=== PATIENT | female | born 1935 | race Caucasian/White ===

== ENCOUNTER → 2016-08-14 | Outpatient (CLI) | payer MEDICARE, BC ==
--- NOTE | 2016-08-14 12:56 | XR ---
EXAMINATION TYPE: XR lumbosacral spine min 4V DATE OF EXAM: 08/14/2016 12:50 PM COMPARISON: 05/31/2015 HISTORY: Low back pain TECHNIQUE: 5 view lumbar spine FINDINGS: Facet hypertrophy and degenerative changes are present L4-5, L5-S1. No spondylolytic defect s are evident. Vascular calcification is within the aorta. There is some fusiform prominence of the d istal abdominal aorta with a maximum AP diameter estimated at 3.1 cm. This is anterior to the L3 leve l There is a grade 1 spondylolisthesis of L4 anteriorly on L5. There is vacuum disc phenomenon at L5-S1 and L4-4-5. Mild diffuse posterior disc space narrowing is present through the upper lumbar spine. IMPRESSION: 1. Degenerative disc changes L5-S1 and L4-5. 2. Grade 1 spondylolisthesis of L4 anteriorly on L5. 3. Fusiform prominence of the distal abdominal aorta measuring 3.1 cm AP dimension.
== END | disposition home or self-care (01) ==
LOC: RADXRMAIN 12:38
PROVIDERS: ATTEND Family Medicine
DX: M43.16 Spondylolisthesis, lumbar region (principal); M47.816 Spondylosis without myelopathy or radiculopathy, lumbar region; M47.817 Spondylosis without myelopathy or radiculopathy, lumbosacral region
CPT/HCPCS: 72110; 93880

== ENCOUNTER → 2016-08-23 | Outpatient (CLI) | payer MEDICARE, BC ==
[2016-08-23 13:07] LABS: Blood Urea Nitrogen 24 mg/dL (7-17); Non-African American GFR(MDRD) 54 (>60 ml/min/1.73 sqM)
--- NOTE | 2016-08-23 14:19 | CT ---
EXAMINATION TYPE: CT abdomen w con DATE OF EXAM: 08/23/2016 2:08 PM REFERENCE: Previous study dated 08/24/2010. HISTORY: I71.4 AAA HISTORY: AAA REFERENCE: NONE CT DLP: 914 mGy Automated exposure control for dose reduction was used. TECHNIQUE: Helical acquisition through the abdomen and pelvis was obtained following the oral ingesti on of without Oral Contrast and following intravenous administration of 80 ml mL of Visipaque 320. Th e data was reformatted in axial, coronal and sagittal projections. FINDINGS: There has been a previous left-sided mastectomy. There is a stable granuloma in the right middle lobe. Visualized portions of the lungs are otherwise clear. There is no pleural or pericardial fluid. There is a small amount of air within the main pulmonary artery. This is likely iatrogenic. Within the abdomen, the liver, spleen and gallbladder are normal. The patient's left-sided adrenal ma ss is increased in size from 9.5 mm to 11.8 mm. There is a 1.6 cm right adrenal mass, unchanged from previous. The pancreas is unremarkable. Both kidneys demonstrate function and appear morphologically normal. There is atheromatous irregularity of the aorta there is ectasia of the infrarenal abdominal aorta wh ich measures 2.9 cm. Visualized bowel loops are unremarkable. There is no evidence of free fluid or free air. There is facet arthropathy and hypertrophic spondylosis present within the spine there is degenerativ e grade 1 bordering on grade 2 spondylolisthesis of L4 on L5. IMPRESSION: 1. STATUS POST LEFT MASTECTOMY. 2. EVIDENCE OF OLD GRANULOMATOUS DISEASE. 3. SMALL AMOUNT OF AIR IN THE MAIN PULMONARY ARTERY, LIKELY IATROGENIC. 4. ENLARGING LEFT-SIDED ADRENAL MASS. 5. STABLE RIGHT-SIDED ADRENAL MASS. 6. DEGENERATIVE CHANGE WITHIN THE SPINE INCLUDING A DEGENERATIVE GRADE 1 BORDERING ON GRADE 2 SPONDYL OLISTHESIS OF L4-L5.
[2016-08-23 14:32] LABS: Basophils % (A) 0 %; CH 31.9; CHCM 33.2; Eosinophils % (A) 0 %; HCT 50.8 % (34.0-46.0); HDW 2.44; HGB 16.6 gm/dL (11.4-16.0); Luc # (Auto) 0.03; Luc % (Auto) 0; Lymphocytes # (A) 1.1 k/uL (1.0-4.8); Lymphocytes % (A) 11 %; MCH 31.5 pg (25.0-35.0); MCHC 32.6 g/dL (31.0-37.0); MCV 96.5 fL (80.0-100.0); Mean Platelet Volume 7.5; Monocytes # (A) 0.2 k/uL (0-1.0); Monocytes % (A) 2 %; Neutrophils # (A) 8.7 k/uL (1.3-7.7); Neutrophils % (A) 87 %; RBC 5.26 m/uL (3.80-5.40); RDW 12.9 % (11.5-15.5); WBC 9.9 k/uL (3.8-10.6); WBC (Perox) 9.77
[2016-08-23 15:23] LABS: Erythrocyte Sedimentation Rate 7 mm/hr (0-20)
== END | disposition home or self-care (01) ==
LOC: RADCTMAIN 12:09
PROVIDERS: ATTEND Family Medicine
DX: E27.9 Disorder of adrenal gland, unspecified (principal)
CPT/HCPCS: 85652; 82565; 84520; 85025; 86140; 74160; 36415; Q9967

== ENCOUNTER → 2016-10-24 | Outpatient (CLI) | payer MEDICARE, BC | LOC: LABWHC1 07:49 | PROVIDERS: ATTEND Surgery | DX: E27.8 Other specified disorders of adrenal gland (principal) | CPT/HCPCS: 36415; 82533 ==

== ENCOUNTER → 2017-07-29 | Outpatient (CLI) | payer MEDICARE, BC ==
--- NOTE | 2017-07-29 15:58 | CT ---
EXAMINATION TYPE: CT brain wo con DATE OF EXAM: 07/29/2017 COMPARISON: 05/31/2015 INDICATION: Dizziness and headaches. DLP: 995.5 mGycm, Automated exposure control for dose reduction was used. CONTRAST: None CT of the brain is performed utilizing 3 mm thick sections through the posterior fossa and 3 mm thick sections through the remaining calvarium. Study is performed within 24 hours of arrival to the hosp ital. No abnormal hyperdensity is present to suggest an acute intracranial hemorrhage. Arachnoid cyst is in the posterior left posterior fossa. No acute infarcts are evident. There is some periventricular white matter hypodensity, likely on the basis of chronic white matter ischemic changes. Ventricles and sulci are prominent for the patient age. Paranasal sinuses and mastoid air cells within the [id number] are clear. IMPRESSIONS: 1. Atrophy with periventricular white matter ischemic changes. 2. Arachnoid cyst posterior fossa. 3. Exam is stable from 2014
--- NOTE | 2017-07-29 16:03 | CT ---
EXAMINATION TYPE: CT abdomen pelvis wo con DATE OF EXAM: 07/29/2017 COMPARISON: 08/23/2016 INDICATION: No complaints at time of scan. DLP: 352.4 mGycm, Automated exposure control for dose reduction was used. CONTRAST: 0 mL of Omnipaque 300. Study performed with Oral Contrast TECHNIQUE: Axial images were obtained from above the diaphragm to the pubic rami in the axial plane a t 5 mm thick sections. Reconstructed images are reviewed on the computer in the coronal plane. FINDINGS: Limited CT sections are obtained the lung bases. Calcified granuloma is in the posterior lateral lef t lung base, present previously. There is calcification in the lateral right middle lobe, present pre viously. Left breast prosthesis is present. Coronary artery calcification is noted. Vascular calcifi cations within the aorta is present. CT ABDOMEN: Liver: Normal Spleen: Normal Pancreas: Normal Adrenal glands: Right adrenal gland appears stable with mild fullness. Left adrenal gland currently h as a transverse dimension of 1.2 cm which is slightly larger than 1.0 cm in August. Gallbladder: Normal Kidneys: No masses are evident. No hydronephrosis is present. No cysts are present. Studies withou t intravenous contrast limiting the evaluation. Aorta: Vascular calcification is within the aorta. Inferior vena cava: Normal. CT PELVIS: Loops of bowel within the abdomen and pelvis are normal. There are loops of bowel which are incom pletely distended or lack oral contrast limiting their evaluation. Appendix: Not identified Urinary bladder: Normal. Genitourinary structures: Uterus and ovaries are not identified. Osseous structures: No suspicious lytic or sclerotic lesions. Facet degenerative changes are within t he lumbar spine. IMPRESSIONS: 1. Mild enlargement of the left adrenal gland. 2. Examination is otherwise stable from comparison.
== END | disposition home or self-care (01) ==
LOC: RADCTMAIN 13:20
PROVIDERS: ATTEND Family Medicine
DX: G93.0 Cerebral cysts (principal); G31.9 Degenerative disease of nervous system, unspecified; R90.89 Other abnormal findings on diagnostic imaging of central nervous system; E27.9 Disorder of adrenal gland, unspecified
CPT/HCPCS: 70450; 74176

== ENCOUNTER 2017-12-28 09:35 | Emergency (ER) | payer MEDICARE, BC ==
--- NOTE | 2017-12-28 10:20 | ED ---
General Adult HPI - General Chief complaint: Extremity Problem,Nontraumatic Stated complaint: Right hip pain Time Seen by Provider: 12/28/17 10:05 Source: patient, RN notes reviewed, old records reviewed Mode of arrival: wheelchair Limitations: physical limitation - History of Present Illness Initial comments: 82-year-old female presenting with right lateral hip pain. Pain is been present for the last 3-4 days. She states it has steadily worsened. Denies any specific injury or overuse. She is able to walk but does have worsening pain with ambulation. Denies any fever or chills. Denies any redness or swelling in the area. She has never had this pain before. She has not taken any medication for her pain. No abdominal pain. No dysuria. No flank pain. No chest pain or shortness of breath. No knee pain. - Related Data Home Medications Medication Instructions Recorded Confirmed ALPRAZolam [Xanax] 0.25 mg PO TID PRN 06/28/14 06/28/14 Allopurinol [Zyloprim] 100 mg PO DAILY 06/28/14 06/28/14 Calcitriol [Rocaltrol] 0.25 mcg PO 06/28/14 06/28/14 Gabapentin [Neurontin] 300 mg PO TID 06/28/14 06/28/14 Hydrochlorothiazide [Hydrodiuril] 25 mg PO DAILY 06/28/14 06/28/14 Omeprazole [PriLOSEC] 20 mg PO AC-BID 06/28/14 06/28/14 Ramipril [Altace] 10 mg PO BID 06/28/14 06/28/14 Simvastatin [Zocor] 40 mg PO HS 06/28/14 06/28/14 Timolol [Betimol] 5 ml OP 06/28/14 06/28/14 rOPINIRole HCL [Requip] 1 mg PO HS 06/28/14 06/28/14 Previous Rx's Medication Instructions Recorded Sulfamethox-Tmp 800-160Mg [Bactrim 1 each PO Q12HR #6 tab 06/29/14 DS 800-160 mg] Ibuprofen [Motrin] 400 mg PO Q6HR PRN #24 tab 12/28/17 Allergies Allergy/AdvReac Type Severity Reaction Status Date / Time codeine Allergy Unknown Verified 12/28/17 09:43 Iodinated Contrast- Oral and Allergy Unknown Verified 12/28/17 09:43 IV Dye [Iodinated Contrast Media - IV Dye] Penicillins Allergy Unknown Verified 12/28/17 09:43 tramadol HCl [From Ultram] Allergy Unknown Verified 12/28/17 09:43 Review of Systems ROS Statement: Those systems with pertinent positive or pertinent negative responses have been documented in the HPI. ROS Other: All systems not noted in ROS Statement are negative. Past Medical History Past Medical History: GERD/Reflux, Hyperlipidemia, Hypertension Additional Past Medical History / Comment(s): ovarian cancer, breast cancer History of Any Multi-Drug Resistant Organisms: None Reported Past Surgical History: Appendectomy, Hysterectomy Additional Past Surgical History / Comment(s): mastectomy left breast Past Psychological History: No Psychological Hx Reported Smoking Status: Former smoker Past Alcohol Use History: None Reported Past Drug Use History: None Reported General Exam Limitations: physical limitation General appearance: alert, in no apparent distress Head exam: Present: atraumatic, normocephalic Eye exam: Present: normal appearance, PERRL ENT exam: Present: normal exam Neck exam: Present: normal inspection. Absent: tenderness, meningismus Respiratory exam: Present: normal lung sounds bilaterally. Absent: respiratory distress, wheezes Cardiovascular Exam: Present: regular rate, normal rhythm GI/Abdominal exam: Present: soft. Absent: distended, tenderness, guarding Extremities exam: Present: tenderness (Tenderness over the greater trochanter on the right. Range of motion at the hip is within normal limits. Range of motion at the knee within normal limits. Distal pulses intact. There is no erythema, no cellulitis, no induration or fluctuance.), other. Absent: joint swelling, calf tenderness Back exam: Present: normal inspection, full ROM Neurological exam: Present: alert, oriented X3, CN II-XII intact. Absent: motor sensory deficit Psychiatric exam: Present: normal affect, normal mood Skin exam: Present: warm, dry, intact. Absent: cyanosis, diaphoretic Course Vital Signs 12/28/17 09:41 Temperature 97.5 F L Pulse Rate 66 Respiratory 18 Rate Blood Pressure 180/84 O2 Sat by Pulse 99 Oximetry Medical Decision Making - Medical Decision Making 82-year-old female with 4 days of worsening right hip pain. On exam patient has tenderness over the greater trochanter. Range of motion at the hip is within normal limits with minimal pain. She is afebrile and has no complaints fever or chills. Exam consistent with a bursitis, no concern for septic arthritis at this time. X-ray reviewed negative for fracture dislocation. There is some osteoarthritis. Patient feeling better after Motrin. She will be prescribed course of nonsteroidal anti-inflammatories and will follow up with her primary care physician. Return with worsening or changing symptoms Disposition Clinical Impression: Trochanteric bursitis of right hip Disposition: HOME SELF-CARE Condition: Fair Instructions: Hip Bursitis (ED) Prescriptions: Ibuprofen [Motrin] 400 mg PO Q6HR PRN #24 tab PRN Reason: Pain Is patient prescribed a controlled substance at d/c from ED?: No Referrals: Yonis Law DO [Primary Care Provider] - 1-2 days Time of Disposition: 11:25
[2017-12-28] MEDS ORDERED: IBUPROFEN 400 MG TAB PO STA (10:33)
--- NOTE | 2017-12-28 11:14 | XR ---
EXAMINATION TYPE: XR Hip Complete RT DATE OF EXAM: 12/28/2017 CLINICAL HISTORY: Right hip pain with no known injury TECHNIQUE: AP and frogleg views of the right hip are obtained. COMPARISON: None. FINDINGS: No cortical discontinuity seen within the right femoral neck or head. There is no acute fra cture/dislocation evident in the right hip. There is moderate right femoral acetabular arthropathy de monstrated as acetabular roof sclerosis and joint space narrowings. Surgical clips are seen within th e right hemipelvis. Mild atherosclerosis is noted. The overlying soft tissue appears unremarkable. IMPRESSION: There is no acute fracture or dislocation in the right hip. Moderate right femoral aceta bular arthropathy.
[2017-12-28 12:14] VITALS: BP 168/82; PULSE 68; RESP 16; TEMP 98
== END 2017-12-28 11:51 | disposition home or self-care (01) ==
LOC: EC 09:35
DX: M70.61 Trochanteric bursitis, right hip (principal); M16.11 Unilateral primary osteoarthritis, right hip; K21.9 Gastro-esophageal reflux disease without esophagitis; E78.5 Hyperlipidemia, unspecified; I10 Essential (primary) hypertension; Z87.891 Personal history of nicotine dependence; Z85.43 Personal history of malignant neoplasm of ovary; Z85.3 Personal history of malignant neoplasm of breast; Z79.899 Other long term (current) drug therapy; Z88.5 Allergy status to narcotic agent; Z88.0 Allergy status to penicillin; Z88.6 Allergy status to analgesic agent; Z91.041 Radiographic dye allergy status
CPT/HCPCS: 73502; 99284

== ENCOUNTER 2018-01-27 00:18 | Inpatient (IN) | payer MEDICARE, BC ==
[2018-01-27 00:44] LABS: Appearance,Urine Clear (Clear); Bilirubin,Urine Negative (Negative); Blood,Urine Negative (Negative); Color,Urine Light Yellow; Glucose,Urine (UA) Negative (Negative); Ketones,Urine Negative (Negative); Leukocyte Esterase,Urine Trace (Negative); Mucus,Urine Rare /hpf; Nitrite,Urine Negative (Negative); PH, Urine 5.5 (5.0-8.0); Protein,Urine Negative (Negative); RBC,Urine <1 /hpf (0-5); Specific Gravity,Urine 1.011 (1.001-1.035); Squamous Epithelial Cell,Urine <1 /hpf (0-4); Urobilinogen,Urine <2.0 mg/dL (<2.0); WBC,Urine 1 /hpf (0-5)
[2018-01-27] MEDS ORDERED: KETOROLAC 30 MG/ML 1 ML VIAL IVP STA (00:45)
--- NOTE | 2018-01-27 00:49 | ED ---
Female Urogenital HPI - General Chief complaint: Urogenital Stated complaint: female gu Time Seen by Provider: 01/27/18 00:38 Source: patient, RN notes reviewed Mode of arrival: wheelchair Limitations: no limitations - History of Present Illness Initial comments: This is an 82-year-old female presents to the emergency department with chief complaint of right sided back pain and difficulty urinating. Patient states that she has been dribbling when urinating. This started today. She states that a couple of hours ago she developed a sharp, burning sensation to her right flank that radiates to her right abdomen. Denies chest pain or shortness of breath, fevers or chills, nausea or vomiting, diarrhea or constipation, dysuria or hematuria. - Related Data Home Medications Medication Instructions Recorded Confirmed ALPRAZolam [Xanax] 0.25 mg PO TID PRN 06/28/14 06/28/14 Allopurinol [Zyloprim] 100 mg PO DAILY 06/28/14 06/28/14 Calcitriol [Rocaltrol] 0.25 mcg PO 06/28/14 06/28/14 Gabapentin [Neurontin] 300 mg PO TID 06/28/14 06/28/14 Hydrochlorothiazide [Hydrodiuril] 25 mg PO DAILY 06/28/14 06/28/14 Omeprazole [PriLOSEC] 20 mg PO AC-BID 06/28/14 06/28/14 Ramipril [Altace] 10 mg PO BID 06/28/14 06/28/14 Simvastatin [Zocor] 40 mg PO HS 06/28/14 06/28/14 Timolol [Betimol] 5 ml OP 06/28/14 06/28/14 rOPINIRole HCL [Requip] 1 mg PO HS 06/28/14 06/28/14 Previous Rx's Medication Instructions Recorded Sulfamethox-Tmp 800-160Mg [Bactrim 1 each PO Q12HR #6 tab 06/29/14 DS 800-160 mg] Ibuprofen [Motrin] 400 mg PO Q6HR PRN #24 tab 12/28/17 Allergies Allergy/AdvReac Type Severity Reaction Status Date / Time codeine Allergy Unknown Verified 01/27/18 00:27 Iodinated Contrast- Oral and Allergy Unknown Verified 01/27/18 00:27 IV Dye [Iodinated Contrast Media - IV Dye] Penicillins Allergy Unknown Verified 01/27/18 00:27 tramadol HCl [From Ultram] Allergy Unknown Verified 01/27/18 00:27 Review of Systems ROS Statement: Those systems with pertinent positive or pertinent negative responses have been documented in the HPI. ROS Other: All systems not noted in ROS Statement are negative. Past Medical History Past Medical History: Cancer, GERD/Reflux, Hyperlipidemia, Hypertension Additional Past Medical History / Comment(s): ovarian cancer, breast cancer History of Any Multi-Drug Resistant Organisms: None Reported Past Surgical History: Appendectomy, Hysterectomy Additional Past Surgical History / Comment(s): mastectomy left breast Past Psychological History: No Psychological Hx Reported Smoking Status: Former smoker Past Alcohol Use History: None Reported Past Drug Use History: None Reported General Exam - General Exam Comments Initial Comments: General: Awake and alert, well-developed; sitting uncomfortably on ED stretcher , writhing in pain. HEENT: Head atraumatic, normocephalic. Pupils are equal, round and reactive to light. Extraocular movements intact. Oropharynx moist without erythema or exudate. Neck: Supple. Normal ROM. Cardiovascular: Regular rate and rhythm. No murmurs, rubs or gallops. Chest symmetrical. Respiratory: Lungs clear to auscultation bilaterally. No wheezes, rales or rhonchi. Normal respiratory effort with no use of accessory muscles. Abdomen: Soft, non-distended. Mild tenderness on palpation of right lower quadrant. No rigidity, rebound or guarding. Normal bowel sounds in all 4 quadrants. Right CVA tenderness. Musculoskeletal: Normal ROM, no tenderness bilateral upper and lower extremities. Ambulating normally. There is tenderness on palpation of right lumbar region. Skin: [place], warm and dry without rashes or lesions. Neurological: Alert and oriented x3. CN II-XII grossly intact. Speech is fluent and answers are appropriate. No focal neuro deficits. Psychiatric: Normal mood and affect. No overt signs of depression or anxiety noted. Limitations: no limitations Course Vital Signs 01/27/18 01/27/18 00:26 03:27 Temperature 98.2 F 97.8 F Pulse Rate 68 72 Respiratory 18 18 Rate Blood Pressure 186/107 197/81 O2 Sat by Pulse 96 99 Oximetry Medical Decision Making - Medical Decision Making This is an 82-year-old female who presents to the emergency department with chief complaint of difficulty urinating and right low back pain. Patient denies any injuries or trauma. She describes the pain as sharp and burning. There is tenderness on palpation of the right low back and flank. Abdomen is soft and non-tender. UA was unremarkable. CBC was unremarkable. Patient does have a BUN of 24 and creatinine of 1.1, however this is consistent with previous laboratory studies. Amylase is 190 and lipase 1525. Computed tomography scan of the abdomen and pelvis with IV contrast revealed no acute abnormalities. Stable abdominal aortic aneurysm and adrenal glands. Patient will be admitted for acute pancreatitis. Patient will be admitted to Dr. Tyson. She will be kept nothing by mouth, IV fluids and pain management. Patient is in agreement for admission. She is in no acute distress. - Lab Data Result diagrams: 01/27/18 01:04 01/27/18 01:04 Lab Results 01/27/18 01/27/18 01/27/18 Range/Units 00:30 01:04 01:04 WBC 8.9 (3.8-10.6) k/uL RBC 4.60 (3.80-5.40) m/uL Hgb 15.1 (11.4-16.0) gm/dL Hct 43.7 (34.0-46.0) % MCV 94.9 (80.0-100.0) fL MCH 32.8 (25.0-35.0) pg MCHC 34.5 (31.0-37.0) g/dL RDW 13.5 (11.5-15.5) % Plt Count 214 (150-450) k/uL Neutrophils % 62 % Lymphocytes % 28 % Monocytes % 6 % Eosinophils % 2 % Basophils % 0 % Neutrophils # 5.5 (1.3-7.7) k/uL Lymphocytes # 2.4 (1.0-4.8) k/uL Monocytes # 0.6 (0-1.0) k/uL Eosinophils # 0.2 (0-0.7) k/uL Basophils # 0.0 (0-0.2) k/uL PT (9.0-12.0) sec INR (<1.2) APTT (22.0-30.0) sec Sodium 140 (137-145) mmol/L Potassium 4.1 (3.5-5.1) mmol/L Chloride 104 (98-107) mmol/L Carbon Dioxide 23 (22-30) mmol/L Anion Gap 13 mmol/L BUN 24 H (7-17) mg/dL Creatinine 1.10 H (0.52-1.04) mg/dL Est GFR (CKD-EPI)AfAm 53 (>60 ml/min/1.73 sqM) Est GFR (CKD-EPI)NonAf 46 (>60 ml/min/1.73 sqM) Glucose 93 (74-99) mg/dL Calcium 10.2 (8.4-10.2) mg/dL Total Bilirubin 1.2 (0.2-1.3) mg/dL AST 29 (14-36) U/L ALT 37 (9-52) U/L Alkaline Phosphatase 58 (38-126) U/L Total Protein 7.1 (6.3-8.2) g/dL Albumin 4.6 (3.5-5.0) g/dL Amylase 198 H (30-110) U/L Lipase 1525 H (23-300) U/L Urine Color Light Yellow Urine Appearance Clear (Clear) Urine pH 5.5 (5.0-8.0) Ur Specific [place] 1.011 (1.001-1.035) Urine Protein Negative (Negative) Urine Glucose (UA) Negative (Negative) Urine Ketones Negative (Negative) Urine Blood Negative (Negative) Urine Nitrite Negative (Negative) Urine Bilirubin Negative (Negative) Urine Urobilinogen <2.0 (<2.0) mg/dL Ur Leukocyte Esterase Trace H (Negative) Urine RBC <1 (0-5) /hpf Urine WBC 1 (0-5) /hpf Ur Squamous Epith Cells <1 (0-4) /hpf Urine Mucus Rare H (None) /hpf 01/27/18 Range/Units 01:04 WBC (3.8-10.6) k/uL RBC (3.80-5.40) m/uL Hgb (11.4-16.0) gm/dL Hct (34.0-46.0) % MCV (80.0-100.0) fL MCH (25.0-35.0) pg MCHC (31.0-37.0) g/dL RDW (11.5-15.5) % Plt Count (150-450) k/uL Neutrophils % % Lymphocytes % % Monocytes % % Eosinophils % % Basophils % % Neutrophils # (1.3-7.7) k/uL Lymphocytes # (1.0-4.8) k/uL Monocytes # (0-1.0) k/uL Eosinophils # (0-0.7) k/uL Basophils # (0-0.2) k/uL PT 10.4 (9.0-12.0) sec INR 1.1 (<1.2) APTT 20.1 L (22.0-30.0) sec Sodium (137-145) mmol/L Potassium (3.5-5.1) mmol/L Chloride (98-107) mmol/L Carbon Dioxide (22-30) mmol/L Anion Gap mmol/L BUN (7-17) mg/dL Creatinine (0.52-1.04) mg/dL Est GFR (CKD-EPI)AfAm (>60 ml/min/1.73 sqM) Est GFR (CKD-EPI)NonAf (>60 ml/min/1.73 sqM) Glucose (74-99) mg/dL Calcium (8.4-10.2) mg/dL Total Bilirubin (0.2-1.3) mg/dL AST (14-36) U/L ALT (9-52) U/L Alkaline Phosphatase (38-126) U/L Total Protein (6.3-8.2) g/dL Albumin (3.5-5.0) g/dL Amylase (30-110) U/L Lipase (23-300) U/L Urine Color Urine Appearance (Clear) Urine pH (5.0-8.0) Ur Specific [place] (1.001-1.035) Urine Protein (Negative) Urine Glucose (UA) (Negative) Urine Ketones (Negative) Urine Blood (Negative) Urine Nitrite (Negative) Urine Bilirubin (Negative) Urine Urobilinogen (<2.0) mg/dL Ur Leukocyte Esterase (Negative) Urine RBC (0-5) /hpf Urine WBC (0-5) /hpf Ur Squamous Epith Cells (0-4) /hpf Urine Mucus (None) /hpf - Radiology Data Radiology results: report reviewed X-ray KUB impression: Nonacute abdomen. CT abdomen and pelvis with contrast impression: Atherosclerotic vascular disease. Minimal stable 3 cm aneurysm of the abdominal aorta. Stable bulky adrenal gland consistent with hyperplasia. There is moderate spinal stenosis at L4-5 due to facet arthropathy and subluxation. Disposition Clinical Impression: Acute pancreatitis Disposition: ADMITTED IP TO THIS HOSP Condition: Fair Is patient prescribed a controlled substance at d/c from ED?: No Referrals: Yonis Law DO [Primary Care Provider] - 1-2 days Time of Disposition: 03:27
[2018-01-27 01:16] LABS: Basophils % (A) 0 %; Eosinophils # (A) 0.2 k/uL (0-0.7); Eosinophils % (A) 2 %; HCT 43.7 % (34.0-46.0); HGB 15.1 gm/dL (11.4-16.0); Lymphocytes # (A) 2.4 k/uL (1.0-4.8); Lymphocytes % (A) 28 %; MCH 32.8 pg (25.0-35.0); MCHC 34.5 g/dL (31.0-37.0); MCV 94.9 fL (80.0-100.0); Mean Platelet Volume 7.4; Monocytes # (A) 0.6 k/uL (0-1.0); Monocytes % (A) 6 %; Neutrophils # (A) 5.5 k/uL (1.3-7.7); Neutrophils % (A) 62 %; Platelet Count 214 k/uL (150-450); RDW 13.5 % (11.5-15.5); WBC 8.9 k/uL (3.8-10.6)
[2018-01-27 01:24] LABS: Albumin 4.6 g/dL (3.5-5.0); Calcium 10.2 mg/dL (8.4-10.2); Potassium 4.1 mmol/L (3.5-5.1); Total Bilirubin 1.2 mg/dL (0.2-1.3); Total Protein 7.1 g/dL (6.3-8.2)
--- NOTE | 2018-01-27 01:33 | XR ---
EXAMINATION TYPE: XR KUB DATE OF EXAM: 01/27/2018 COMPARISON: NONE HISTORY: Flank pain TECHNIQUE: Single view FINDINGS: There is no sign of intestinal obstruction or pneumoperitoneum. Fecal pattern is normal. Th ere are surgical clips in the right lower quadrant. There is no evidence of a mass. I see no definite calcifications over the kidneys. IMPRESSION: Nonacute abdomen.
[2018-01-27 01:37] LABS: INR 1.1 (<1.2); Prothrombin Time 10.4 sec (9.0-12.0)
[2018-01-27 01:39] LABS: Partial Thromboplastin Time 20.1 sec (22.0-30.0)
[2018-01-27] MEDS ORDERED: FAMOTIDINE 20 MG/2 ML VIAL IV STA (01:52)
[2018-01-27] MEDS ORDERED: methylPREDNISolone SOD SUCCI 125 MG/2 ML VIAL IV STA (01:52)
[2018-01-27] MEDS ORDERED: diphenhydrAMINE 50 MG/ML 1 ML VIAL IVP STA (01:52)
--- NOTE | 2018-01-27 03:10 | CT ---
EXAMINATION TYPE: CT abdomen pelvis w con DATE OF EXAM: 01/27/2018 COMPARISON: 07/29/2017 HISTORY: Prior on synaspe, right flank pain down to right buttock and leg, difficulty urinating, hist ory of breast and ovarian CA, history of appendectomy, hysterectomy, and left mastectomy CT DLP: 504.20 mGycm Automated exposure control for dose reduction was used. TECHNIQUE: Helical acquisition of images was performed from the lung bases through the pelvis. CONTRAST: Performed without Oral Contrast and with IV Contrast, patient injected with 80 mL of Isovue 300. FINDINGS: The lung bases are clear. There is no pleural effusion. Heart size is normal. Liver shows no focal defect. Spleen and pancreas appear normal. Gallbladder appears normal. Bile duct s are not dilated. There is no adrenal mass. There is some bulkiness of left and right adrenal gland. Kidneys show [employer] contrast opacification. There is no hydronephrosis. Ureters are not dilated. Abdominal aorta is atheromatous. There is no retroperitoneal adenopathy. Abdominal aorta measures up to 3 cm. There i s no ascites. I see no intestinal wall thickening. There are no dilated loops. Bladder distends gunnar hly. There is spondylosis in the lower lumbar spine. There is degenerative first-degree L4-5 spondylo listhesis. Appendix is not seen. There is no sign of appendicitis. There is no evidence of pelvic mas s. There are surgical clips in the pelvis on the right side. I see no pelvic lymphadenopathy. Hystere ctomy is noted. IMPRESSION: ATHEROSCLEROTIC VASCULAR DISEASE. MINIMAL STABLE 3 CM ANEURYSM OF THE ABDOMINAL AORTA. STABLE BULKY A DRENAL GLANDS CONSISTENT WITH HYPERPLASIA. No sign of acute abdomen and pelvis. There is moderate spinal stenosis at L4-5 due to facet arthropathy and subluxation.
[2018-01-27] MEDS ORDERED: MORPHINE SULFATE 2 MG/ML SYRINGE IV PRN (03:27)
[2018-01-27] MEDS ORDERED: Acetaminophen-Codeine 300-30mg TAB PO PRN (03:27)
[2018-01-27] MEDS ORDERED: ACETAMINOPHEN TAB 325 MG TAB PO PRN (03:27)
[2018-01-27] MEDS ORDERED: NALOXONE 0.4 MG/ML 1 ML VIAL IV PRN (03:27)
[2018-01-27] MEDS ORDERED: ONDANSETRON 4 MG/2 ML VIAL IVP PRN (03:27)
[2018-01-27] MEDS ORDERED: cloNIDine HCL 0.2 MG TAB PO STA (03:33)
[2018-01-27] MEDS: SODIUM CHLORIDE 0.9% 1,000 ML IV SCH ×2 (06:29→15:46)
[2018-01-27 07:05] VITALS: BMI 25.0
--- NOTE | 2018-01-27 11:34 | US ---
EXAMINATION TYPE: US gallbladder DATE OF EXAM: 01/27/2018 COMPARISON: CT earlier today CLINICAL HISTORY: abdominal pain. Right flank pain, history of breast and ovarian CA EXAM MEASUREMENTS: Liver Length: 14.7 cm Gallbladder Wall: 0.2 cm CBD: 0.2 cm Right Kidney: 9.4 x 4.4 x 4.4 cm Pancreas: visualized portions wnl, tail obscured by overlying midline bowel gas Liver: wnl Gallbladder: wnl Evidence for sonographic Camacho's sign: no CBD: wnl Right Kidney: wnl IMPRESSION: No shadowing mobile gallstones or ultrasound evidence for acute cholecystitis.
--- NOTE | 2018-01-27 13:03 | P.HPIM ---
History of Present Illness This is a 82-year-old female, one of Dr. Law's patients, with past medical history of breast cancer, GERD, hyperlipidemia, mild dementia, and hypertension. Patient reports she was visiting the cemetery in [place] with family, they stopped on their way home and ate at a restaurant, she had a BLT, she reports on the way home she started to have some abdominal pain that radiated to the right side and upper back. She reported over the next few hours the pain worsened and intensified so she went to the emergency department. X-ray KUB was done showed nonacute abdomen, no signs of intestinal obstruction, or mass. No calcifications in the kidneys. Laboratory values revealed amylase 198, lipase 1525, creatinine 1.1, BUN 24. 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 Ultrasound of the bladder showed no gallstones or evidence for acute cholelithiasis. Patient reports she is actually feeling much better today, she she still has some slight tenderness in upper mid abdomen with palpitation, no nausea vomiting diarrhea constipation. She remains afebrile. Surgery consulted for acute pancreatitis, will draw lipid panel and check triglycerides , will start patient on clear liquid diet and advance as tolerated. Review of Systems Constitutional: Reports poor appetite, Denies anorexia, Denies chills, Denies fatigue, Denies fever, Denies sweats, Denies weakness, Denies weight loss Ears, nose, mouth and throat: Denies dysphagia, Denies headache, Denies nasal congestion, Denies nasal discharge, Denies sinus pain, Denies sinus pressure, Denies sore throat Cardiovascular: Denies chest pain, Denies high blood pressure, Denies leg edema , Denies orthopnea, Denies palpitations, Denies rapid heart beat, Denies shortness of breath, Denies syncope Respiratory: Denies congestion, Denies cough, Denies dyspnea, Denies pain, Denies wheezing Gastrointestinal: Reports as per HPI, Reports abdominal pain, Denies bloating, Denies change in bowel habits, Denies constipation, Denies diarrhea, Denies heartburn, Denies indigestion, Denies nausea, Denies vomiting Genitourinary: Reports post void dribbling, Reports urge incontinence, Denies difficulty voiding, Denies dysuria, Denies hematuria, Denies kidney stones, Denies urgency Musculoskeletal: Reports muscle cramps, Denies atrophy, Denies frequent falls, Denies gait dysfunction, Denies muscle weakness, Denies myalgias, Denies neck pain Integumentary: Denies color changes, Denies lesions, Denies pruritus, Denies rash, Denies wounds Neurological: Denies aphasia, Denies balance difficulties, Denies confusion, Denies headaches, Denies memory loss, Denies paralysis, Denies paresthesias, Denies seizures, Denies syncope, Denies weakness, Denies visual changes Psychiatric: Denies anxiety, Denies confusion, Denies depression, Denies difficulty concentrating, Denies irritability, Denies mood swings, Denies paranoia, Denies suicidal ideation Endocrine: Denies cold intolerance, Denies fatigue, Denies low blood sugars, Denies nocturia, Denies weight change Hematologic/Lymphatic: Denies easy bleeding, Denies lymphadenopathy Allergic/Immunologic: Denies anaphylaxis, Denies persistent infections, Denies wheezing Past Medical History Past Medical History: Cancer, GERD/Reflux, Hyperlipidemia, Hypertension Additional Past Medical History / Comment(s): ovarian cancer, breast cancer, mild memory loss, carotid stenosis, gout, neuropathy History of Any Multi-Drug Resistant Organisms: None Reported Past Surgical History: Appendectomy, Hysterectomy Additional Past Surgical History / Comment(s): mastectomy left breast, right carotid endartecectomy Past Anesthesia/Blood Transfusion Reactions: No Reported Reaction Past Psychological History: No Psychological Hx Reported Smoking Status: Former smoker Past Alcohol Use History: None Reported Past Drug Use History: None Reported - Past Family History Mother Family Medical History: Cancer Father Family Medical History: Cancer Medications and Allergies Home Medications Medication Instructions Recorded Confirmed Type Allopurinol [Zyloprim] 100 mg PO DAILY 06/28/14 01/27/18 History Gabapentin [Neurontin] 300 mg PO 06/28/14 01/27/18 History Aspirin EC [Ecotrin Low Dose] 81 mg PO DAILY 01/27/18 01/27/18 History Donepezil [Aricept] 5 mg PO HS 01/27/18 01/27/18 History Enalapril [Vasotec] 5 mg PO DAILY 01/27/18 01/27/18 History Latanoprost Ophth [Xalatan 0.005%] 1 drop BOTH EYES HS 01/27/18 01/27/18 History Meloxicam [Meloxicam] 7.5 mg PO BID 01/27/18 01/27/18 History Simvastatin [Simvastatin] 40 mg PO HS 01/27/18 01/27/18 History Timolol 0.5% Ophth Soln [Timoptic 1 drop BOTH EYES BID 01/27/18 01/27/18 History 0.5% Ophth Soln] Allergies Allergy/AdvReac Type Severity Reaction Status Date / Time codeine Allergy Unknown Verified 01/27/18 07:58 Iodinated Contrast- Oral and Allergy Unknown Verified 01/27/18 07:58 IV Dye [Iodinated Contrast Media - IV Dye] Penicillins Allergy Unknown Verified 01/27/18 07:58 tramadol HCl [From Ultram] Allergy Unknown Verified 01/27/18 07:58 Physical Exam Vitals: Vital Signs Temp Pulse Pulse Resp BP BP Pulse Ox 01/27/18 07:11 97.0 F L 51 L 16 114/57 99 01/27/18 06:19 98.3 F 18 01/27/18 05:50 58 L 18 110/56 100 01/27/18 04:25 65 17 154/73 100 01/27/18 03:27 97.8 F 72 18 197/81 99 01/27/18 00:26 98.2 F 68 18 186/107 96 Intake and Output 01/26/18 01/27/18 01/27/18 22:59 06:59 14:59 Other: Voiding Method Toilet # Voids 1 Weight 68.039 kg - Constitutional General appearance: average body habitus, cooperative, no acute distress - EENT Eyes: PERRLA ENT: hearing grossly normal, normal oropharynx, no thrush - Neck Neck: no lymphadenopathy, normal ROM, no rigidity, no stridor, no thyromegaly - Respiratory Respiratory: right: CTA, negative: diminished, dullness, rales, rhonchi, wheezing - Cardiovascular Rhythm: regular Heart sounds: normal: S1, S2 - Gastrointestinal General gastrointestinal: no decreased bowel sounds, no hepatomegaly, no hyperactive bowel sounds, normal bowel sounds, no organomegaly, soft, tenderness Localized gastrointestinal: tender: RUQ, RLQ, midline - Integumentary Integumentary: no jaundiced, normal, no rash - Neurologic Neurologic: CNII-XII intact - Musculoskeletal Musculoskeletal: strength equal bilaterally - Psychiatric Psychiatric: A&O x's 3 Results CBC & Chem 7: 01/27/18 01:04 01/27/18 01:04 Labs: Abnormal Lab Results - Last 24 Hours (Table) 01/27/18 01/27/18 01/27/18 Range/Units 00:30 01:04 01:04 APTT 20.1 L (22.0-30.0) sec BUN 24 H (7-17) mg/dL Creatinine 1.10 H (0.52-1.04) mg/dL Amylase 198 H (30-110) U/L Lipase 1525 H (23-300) U/L Ur Leukocyte Esterase Trace H (Negative) Urine Mucus Rare H (None) /hpf Thrombosis Risk Factor Assmnt - Choose All That Apply Each Risk Factor Represents 3 Points: Age 75 years or older Thrombosis Risk Factor Assessment Total Risk Factor Score: 3 Thrombosis Risk Factor Assessment Level: Moderate Risk Assessment and Plan Plan: 1. Acute pancreatitis. Will monitor amylase and lipase, gallbladder ultrasound and abdominal CT completed, surgery consulted, will draw triglycerides, advance patient to clear liquid diet for now and advance as tolerated. Continue morphine 4 mg IV every 4 hours as needed for pain, Zofran as needed for nausea 2. Mild memory loss. Continue Aricept 5 mg 3. Chronic neuropathy, continue gabapentin 300 mg. 4. History of gout. No current flareup, continue allopurinol 100 mg daily. 5. Hypertension. Continue lisinopril 10 mg daily 6. History of breast cancer with mastectomy. In remission stable. 7. History of glaucoma. Continue eyedrops. 8. DVT prophylaxis. Heparin 9. GI prophylaxis famotidine. The above impression and plan of care have been discussed and directed by signing physician. Shahida Mcarthur nurse practitioner acting as scribe for signing physician.
--- NOTE | 2018-01-27 13:16 | P.GSCN ---
History of Present Illness Consult date: 01/27/18 Reason for Consult: pancreatitis History of present illness: This is a 82-year-old female who presented to the hospital with a chief complaint of right flank pain. She states that this wrapped around to her right abdomen as well. She states this began after eating a sandwich on her way home from [facility]. She denies her having pain like this before in the past. She is a history of ovarian cancer and breast cancer she underwent a mastectomy and an unknown abdominal surgery for this back in the 70s. She denies any nausea or vomiting she denies any fevers or chills she states it's been several days since her last bowel movement however it's normal for her to be constipated. She states her pain is tolerable at this time she has no other complaints Past Medical History Past Medical History: Cancer, GERD/Reflux, Hyperlipidemia, Hypertension Additional Past Medical History / Comment(s): ovarian cancer, breast cancer, mild memory loss, carotid stenosis, gout, neuropathy History of Any Multi-Drug Resistant Organisms: None Reported Past Surgical History: Appendectomy, Hysterectomy Additional Past Surgical History / Comment(s): mastectomy left breast, right carotid endartecectomy Past Anesthesia/Blood Transfusion Reactions: No Reported Reaction Past Psychological History: No Psychological Hx Reported Smoking Status: Former smoker Past Alcohol Use History: None Reported Past Drug Use History: None Reported - Past Family History Mother Family Medical History: Cancer Father Family Medical History: Cancer Medications and Allergies Home Medications Medication Instructions Recorded Confirmed Type Allopurinol [Zyloprim] 100 mg PO DAILY 06/28/14 01/27/18 History Gabapentin [Neurontin] 300 mg PO HS 06/28/14 01/27/18 History Aspirin EC [Ecotrin Low Dose] 81 mg PO DAILY 01/27/18 01/27/18 History Donepezil [Aricept] 5 mg PO HS 01/27/18 01/27/18 History Enalapril [Vasotec] 5 mg PO DAILY 01/27/18 01/27/18 History Latanoprost Ophth [Xalatan 0.005%] 1 drop BOTH EYES HS 01/27/18 01/27/18 History Meloxicam [Meloxicam] 7.5 mg PO BID 01/27/18 01/27/18 History Simvastatin [Simvastatin] 40 mg PO HS 01/27/18 01/27/18 History Timolol 0.5% Ophth Soln [Timoptic 1 drop BOTH EYES BID 01/27/18 01/27/18 History 0.5% Ophth Soln] Allergies Allergy/AdvReac Type Severity Reaction Status Date / Time codeine Allergy Unknown Verified 01/27/18 07:58 Iodinated Contrast- Oral and Allergy Unknown Verified 01/27/18 07:58 IV Dye [Iodinated Contrast Media - IV Dye] Penicillins Allergy Unknown Verified 01/27/18 07:58 tramadol HCl [From Ultram] Allergy Unknown Verified 01/27/18 07:58 Surgical - Exam Osteopathic Statement: *. No significant issues noted on an osteopathic structural exam other than those noted in the History and Physical/Consult. Vital Signs Temp Pulse Resp BP Pulse Ox 98.2 F 68 18 186/107 96 01/27/18 00:26 01/27/18 00:26 01/27/18 00:26 01/27/18 00:26 01/27/18 00:26 Results - Labs 01/27/18 01:04 01/27/18 01:04 Abnormal Lab Results - Last 24 Hours (Table) 01/27/18 01/27/18 01/27/18 Range/Units 00:30 01:04 01:04 APTT 20.1 L (22.0-30.0) sec BUN 24 H (7-17) mg/dL Creatinine 1.10 H (0.52-1.04) mg/dL Amylase 198 H (30-110) U/L Lipase 1525 H (23-300) U/L Ur Leukocyte Esterase Trace H (Negative) Urine Mucus Rare H (None) /hpf Diabetes panel 01/27/18 Range/Units 01:04 Sodium 140 (137-145) mmol/L Potassium 4.1 (3.5-5.1) mmol/L Chloride 104 (98-107) mmol/L Carbon Dioxide 23 (22-30) mmol/L BUN 24 H (7-17) mg/dL Creatinine 1.10 H (0.52-1.04) mg/dL Glucose 93 (74-99) mg/dL Calcium 10.2 (8.4-10.2) mg/dL AST 29 (14-36) U/L ALT 37 (9-52) U/L Alkaline Phosphatase 58 (38-126) U/L Total Protein 7.1 (6.3-8.2) g/dL Albumin 4.6 (3.5-5.0) g/dL Calcium panel 01/27/18 Range/Units 01:04 Calcium 10.2 (8.4-10.2) mg/dL Albumin 4.6 (3.5-5.0) g/dL Pituitary panel 01/27/18 Range/Units 01:04 Sodium 140 (137-145) mmol/L Potassium 4.1 (3.5-5.1) mmol/L Chloride 104 (98-107) mmol/L Carbon Dioxide 23 (22-30) mmol/L BUN 24 H (7-17) mg/dL Creatinine 1.10 H (0.52-1.04) mg/dL Glucose 93 (74-99) mg/dL Calcium 10.2 (8.4-10.2) mg/dL Adrenal panel 01/27/18 Range/Units 01:04 Sodium 140 (137-145) mmol/L Potassium 4.1 (3.5-5.1) mmol/L Chloride 104 (98-107) mmol/L Carbon Dioxide 23 (22-30) mmol/L BUN 24 H (7-17) mg/dL Creatinine 1.10 H (0.52-1.04) mg/dL Glucose 93 (74-99) mg/dL Calcium 10.2 (8.4-10.2) mg/dL Total Bilirubin 1.2 (0.2-1.3) mg/dL AST 29 (14-36) U/L ALT 37 (9-52) U/L Alkaline Phosphatase 58 (38-126) U/L Total Protein 7.1 (6.3-8.2) g/dL Albumin 4.6 (3.5-5.0) g/dL - Imaging CT scan - abdomen: report reviewed, image reviewed CT scan - pelvis: report reviewed, image reviewed US - abdomen: report reviewed, image reviewed Assessment and Plan Assessment: Acute pancreatitis Plan: Patient has symptoms and clinical signs consistent with acute pancreatitis. She did not have gallstones on ultrasound or CT. She does not drink alcohol. I agree with obtaining triglyceride lipid panel. This could be the source of her pancreatitis. No plans for acute surgical intervention at this time. Continue clear liquid diet as tolerated and IV fluids.
[2018-01-27 13:21] LABS: Cholesterol 127 mg/dL (<200); HDL Cholesterol 64 mg/dL (40-60); LDL Cholesterol,Calculated 47 mg/dL (0-99); Triglycerides 78 mg/dL (<150)
[2018-01-27] MEDS: HEPARIN SODIUM,PORCINE 5,000 UNIT/ML 1 ML VIAL SQ SCH ×2 (15:40→23:14)
[2018-01-27 19:46] VITALS: BP 137/74; PULSE 56
[2018-01-27] MEDS: TIMOLOL 0.5% OPHTH DROPS 5 ML BTL BOTH EYES SCH (20:24)
[2018-01-27 20:44] VITALS: RESP 18; TEMP 97.8
[2018-01-27] MEDS ORDERED: LATANOPROST 0.005% OPHTH DROPS 2.5 ML BTL BOTH EYES SCH (21:00)
[2018-01-27] MEDS ORDERED: DONEPEZIL 5 MG TAB PO SCH (21:00)
[2018-01-27] MEDS ORDERED: GABAPENTIN 300 MG CAP PO SCH (21:00)
[2018-01-27] MEDS ORDERED: ATORVASTATIN 20 MG TAB PO SCH (21:00)
[2018-01-28 08:57] LABS: Calcium 9.6 mg/dL (8.4-10.2); Potassium 4.3 mmol/L (3.5-5.1); Total Bilirubin 1.2 mg/dL (0.2-1.3); Total Protein 6.3 g/dL (6.3-8.2)
[2018-01-28] MEDS ORDERED: ASPIRIN 81 MG PO SCH (09:00)
[2018-01-28] MEDS ORDERED: FAMOTIDINE 20 MG TAB PO SCH (09:00)
[2018-01-28] MEDS ORDERED: ALLOPURINOL 100 MG TAB PO SCH (09:00)
[2018-01-28] MEDS ORDERED: LISINOPRIL 10 MG TAB PO SCH (09:00)
[2018-01-28 09:30] LABS: Basophils % (A) 0 %; Eosinophils % (A) 0 %; HCT 44.9 % (34.0-46.0); HGB 15.2 gm/dL (11.4-16.0); Lymphocytes # (A) 1.3 k/uL (1.0-4.8); Lymphocytes % (A) 10 %; MCH 32.6 pg (25.0-35.0); MCHC 33.8 g/dL (31.0-37.0); MCV 96.5 fL (80.0-100.0); Mean Platelet Volume 7.6; Monocytes # (A) 0.8 k/uL (0-1.0); Monocytes % (A) 6 %; Neutrophils # (A) 10.9 k/uL (1.3-7.7); Neutrophils % (A) 83 %; Platelet Count 218 k/uL (150-450); RBC 4.65 m/uL (3.80-5.40); RDW 13.1 % (11.5-15.5); WBC 13.1 k/uL (3.8-10.6)
[2018-01-28] MEDS: TIMOLOL 0.5% OPHTH DROPS 5 ML BTL BOTH EYES SCH (10:45)
[2018-01-28] MEDS: HEPARIN SODIUM,PORCINE 5,000 UNIT/ML 1 ML VIAL SQ SCH (10:45)
[2018-01-28] MEDS: SODIUM CHLORIDE 0.9% 1,000 ML IV SCH (10:51)
--- NOTE | 2018-01-28 11:35 | P.PN ---
Subjective Progress Note Date: 01/28/18 Patient states she is feeling much better today. She denies any abdominal pain she denies any back pain other than when she is lying in bed. She denies any fevers or chills. She denies any nausea or vomiting. She's having bowel movements. She's tolerating her clear liquids Objective - Vital Signs Vital signs: Vital Signs Temp 97.8 F 01/27/18 20:44 Pulse 56 L 01/27/18 19:46 Resp 18 01/27/18 20:44 BP 137/74 01/27/18 19:44 Pulse Ox 99 01/27/18 15:10 Intake & Output 01/27/18 01/28/18 01/28/18 18:59 06:59 18:59 Intake Total 705 Balance 705 Intake: Intake, IV Titration 225 Amount Sodium Chloride 0.9% 1, 225 000 ml @ 75 mls/hr IV . [id number] ANNALEE Rx#:[id number] Oral 480 Other: Voiding Method Toilet # Voids 1 1 - Constitutional General appearance: Present: cooperative - Respiratory Details: Nonlabored - Cardiovascular Rhythm: regular - Gastrointestinal Gastrointestinal Comment(s): Soft nontender nondistended - Psychiatric Psychiatric: Present: A&O x's 3 - Labs CBC & Chem 7: 01/28/18 08:00 01/27/18 01:04 Labs: Abnormal Lab Results - Last 24 Hours (Table) 01/27/18 01/28/18 Range/Units 12:52 08:00 WBC 13.1 H (3.8-10.6) k/uL Neutrophils # 10.9 H (1.3-7.7) k/uL HDL Cholesterol 64 H (40-60) mg/dL Assessment and Plan Assessment: Acute pancreatitis Plan: Okay to Advance diet as tolerated from surgical standpoint, no plans for surgical intervention.
--- NOTE | 2018-01-28 13:32 | P.DS ---
Providers Date of admission: 01/27/18 05:48 Attending physician: Chan Tyson Consults: 01/27/18 10:11 Consult Physician Routine Consulting Provider: Luis Miguel Landrum Consult Reason/Comments: pancreatitis Do you want consulting provider notified?: Yes Primary care physician: Yonis Law [facility] Course: This is a 82-year-old female, one of Dr. Law's patients, with past medical history of breast cancer, GERD, hyperlipidemia, mild dementia, and hypertension. Patient reports she was visiting the cemetery in [place] with family, they stopped on their way home and ate at a restaurant, she had a BLT, she reports on the way home she started to have some abdominal pain that radiated to the right side and upper back. She reported over the next few hours the pain worsened and intensified so she went to the emergency department. X-ray KUB was done showed nonacute abdomen, no signs of intestinal obstruction, or mass. No calcifications in the kidneys. Laboratory values revealed amylase 198, lipase 1525, creatinine 1.1, BUN 24. 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 Ultrasound of the bladder showed no gallstones or evidence for acute cholelithiasis. Patient reports she is actually feeling much better today, she she still has some slight tenderness in upper mid abdomen with palpitation, no nausea vomiting diarrhea constipation. She remains afebrile. Surgery consulted for acute pancreatitis, will draw lipid panel and check triglycerides , will start patient on clear liquid diet and advance as tolerated. Patient is feeling a lot better today she denies any chest pain or any shortness breath her pain is better she is tolerating her clear liquid diet very well she is going to be discharged home her on today and advance her diet as tolerated. Final diagnoses: 1. Acute pancreatitis. Of unclear etiology. 2. Mild memory loss. 3. Chronic neuropathy. 4. History of gout. 5. Hypertension. 6. History of breast cancer with mastectomy. 7. History of glaucoma. Patient Condition at Discharge: Good Plan - Discharge Summary New Discharge Prescriptions: New Acetaminophen Tab [Tylenol] 650 mg PO Q6HR PRN tab PRN Reason: Mild Pain Or Fever > 100.5 Continue Gabapentin [Neurontin] 300 mg PO HS Allopurinol [Zyloprim] 100 mg PO DAILY Timolol 0.5% Ophth Soln [Timoptic 0.5% Ophth Soln] 1 drop BOTH EYES BID Latanoprost Ophth [Xalatan 0.005%] 1 drop BOTH EYES HS Simvastatin 40 mg PO HS Aspirin EC [Ecotrin Low Dose] 81 mg PO DAILY Meloxicam 7.5 mg PO BID Enalapril [Vasotec] 5 mg PO DAILY Donepezil [Aricept] 5 mg PO HS Discharge Medication List Allopurinol [Zyloprim] 100 mg PO DAILY 06/28/14 [History] Gabapentin [Neurontin] 300 mg PO HS 06/28/14 [History] Aspirin EC [Ecotrin Low Dose] 81 mg PO DAILY 01/27/18 [History] Donepezil [Aricept] 5 mg PO HS 01/27/18 [History] Enalapril [Vasotec] 5 mg PO DAILY 01/27/18 [History] Latanoprost Ophth [Xalatan 0.005%] 1 drop BOTH EYES HS 01/27/18 [History] Meloxicam 7.5 mg PO BID 01/27/18 [History] Simvastatin 40 mg PO HS 01/27/18 [History] Timolol 0.5% Ophth Soln [Timoptic 0.5% Ophth Soln] 1 drop BOTH EYES BID [History] Acetaminophen Tab [Tylenol] 650 mg PO Q6HR PRN tab 01/28/18 [Rx] Follow up Appointment(s)/Referral(s): Yonis Law DO [Primary Care Provider] - 1-2 days Discharge Disposition: HOME SELF-CARE
== END 2018-01-28 16:19 | disposition home or self-care (01) | DRG 440 ==
LOC: EC 00:18 → 3SUR 05:48
PROVIDERS: ADMIT Internal Medicine Geriatric Medicine; ATTEND Internal Medicine Geriatric Medicine
DX: K85.90 Acute pancreatitis without necrosis or infection, unspecified (principal); E78.5 Hyperlipidemia, unspecified; F03.90 Unspecified dementia, unspecified severity, without behavioral disturbance, psychotic disturbance, mood disturbance, and anxiety; G62.9 Polyneuropathy, unspecified; H40.9 Unspecified glaucoma; I10 Essential (primary) hypertension; I71.4 Abdominal aortic aneurysm, without rupture; K21.9 Gastro-esophageal reflux disease without esophagitis; Z79.899 Other long term (current) drug therapy; Z85.3 Personal history of malignant neoplasm of breast; Z85.43 Personal history of malignant neoplasm of ovary; Z87.891 Personal history of nicotine dependence; Z90.12 Acquired absence of left breast and nipple; Z90.710 Acquired absence of both cervix and uterus; M10.9 Gout, unspecified; Z88.5 Allergy status to narcotic agent; Z88.0 Allergy status to penicillin; Z91.041 Radiographic dye allergy status; I65.29 Occlusion and stenosis of unspecified carotid artery
CPT/HCPCS: 36415; 74018; 74177; 76705; 80053; 80061; 81001; 82150; 83615; 83690; 85025; 85610; 85730; 96374; 96375; 99285

== ENCOUNTER → 2018-03-02 | Outpatient (CLI) | payer MEDICARE, BC ==
[2018-03-02 11:10] LABS: Appearance,Urine Cloudy (Clear); Bacteria,Urine Rare /hpf; Bilirubin,Urine Negative (Negative); Blood,Urine Negative (Negative); Color,Urine Yellow; Glucose,Urine (UA) Negative (Negative); HCT 42.3 % (34.0-46.0); HGB 13.7 gm/dL (11.4-16.0); Hyaline Casts,Urine 27 /lpf (0-2); Ketones,Urine Negative (Negative); Leukocyte Esterase,Urine Large (Negative); MCH 30.8 pg (25.0-35.0); MCHC 32.3 g/dL (31.0-37.0); MCV 95.4 fL (80.0-100.0); Mean Platelet Volume 7.4; Mucus,Urine Occasional /hpf; Nitrite,Urine Negative (Negative); Platelet Count 250 k/uL (150-450); Protein,Urine Trace (Negative); RBC 4.44 m/uL (3.80-5.40); RBC,Urine 2 /hpf (0-5); RDW 13.6 % (11.5-15.5); Specific Gravity,Urine 1.016 (1.001-1.035); Squamous Epithelial Cell,Urine 4 /hpf (0-4); Urobilinogen,Urine <2.0 mg/dL (<2.0); WBC 9.9 k/uL (3.8-10.6); WBC,Urine 16 /hpf (0-5)
[2018-03-02 11:19] LABS: Calcium 9.9 mg/dL (8.4-10.2); Potassium 4.8 mmol/L (3.5-5.1); Uric Acid 3.7 mg/dL (3.7-7.4)
[2018-03-02 11:42] LABS: Creatinine,Urine Random 210.1 mg/dL
[2018-03-02 16:50] LABS: Iron Saturation 29.17 (12.00-45.00)
[2018-03-02 17:00] LABS: Vitamin D 25 Hydroxy 32.3 ng/mL (30.0-100.0)
[2018-03-02 17:01] LABS: Parathyroid Hormone Intact 89.5 pg/mL (14.0-72.0)
[2018-03-03 14:20] LABS: Albumin 3.93 g/dL (3.80-4.90); Gamma Globulin 0.42 g/dL (0.70-1.50); Protein, Total 6.4 g/dL (6.2-8.2)
[2018-03-04 04:44] LABS: Angiotensin-1 Converting Enz. 9 U/L (8-52)
== END | disposition home or self-care (01) ==
LOC: LABWHC1 10:12
PROVIDERS: ATTEND Nurse Practitioner Family
DX: E83.52 Hypercalcemia (principal); N39.0 Urinary tract infection, site not specified; N18.3 Chronic kidney disease, stage 3 (moderate); D63.1 Anemia in chronic kidney disease; M10.9 Gout, unspecified
CPT/HCPCS: 36415; 80048; 81001; 82164; 82306; 82570; 82652; 82728; 83540; 83550; 83883; 83970; 84156; 84165; 84550; 85027; 86335

== ENCOUNTER → 2018-03-04 | Outpatient (CLI) | payer MEDICARE, BC ==
--- NOTE | 2018-03-04 09:12 | NM ---
EXAMINATION TYPE: NM hepatobiliary w EF DATE OF EXAM: 03/04/2018 COMPARISON: CT and ultrasound January 27, 2018. HISTORY: Pancreatitis per order. Abdominal pain and nausea per patient. TECHNIQUE: After the intravenous administration of 5.07 mCi Tc 99m Mebrofenin hepatobiliary scintigra phy is performed. Immediate images post injection. FINDINGS: There is satisfactory initial accumulation of tracer by the liver. The gallbladder is visualized wit hin 30 minutes. The small bowel activity is noted within 60 minutes. At one hour 8 ounces of oral e nsure plus is given to mimic CCK and gallbladder ejection fraction is calculated at 86 %, not deviate d from the normal range. Therefore there is no scintigraphic evidence of cystic or common bile duct obstruction to suggest acute cholecystitis or gallbladder hypokinesia. IMPRESSION: Ejection fraction is 86%, not deviated from the normal range.
== END | disposition home or self-care (01) ==
LOC: RADNMMAIN 06:55
PROVIDERS: ATTEND Family Medicine
DX: K85.90 Acute pancreatitis without necrosis or infection, unspecified (principal)
CPT/HCPCS: 78226; A9537

== ENCOUNTER → 2018-11-03 | Outpatient (CLI) | payer MEDICARE, BC ==
--- NOTE | 2018-11-03 15:45 | NM ---
EXAMINATION TYPE: NM hepatobiliary w EF DATE OF EXAM: 11/03/2018 COMPARISON: Prior exam 03/04/2018 HISTORY: Pancreatitis TECHNIQUE: After the intravenous administration of 5.19 mCi Tc 99m Mebrofenin hepatobiliary scintigra phy is performed. Immediate images post injection. FINDINGS: There is satisfactory initial accumulation of tracer by the liver. The gallbladder is visualized wit hin 14 minutes. The small bowel activity is noted within 52 minutes. At one hour 8 ounces of oral e nsure plus is given to mimic CCK and gallbladder ejection fraction is calculated at 75 %, in the norm al range. Therefore there is no scintigraphic evidence of cystic or common bile duct obstruction to suggest acute cholecystitis or gallbladder dyskinesia. IMPRESSION: Exam is within normal limits.
== END | disposition home or self-care (01) ==
LOC: RADNMMAIN 13:05
PROVIDERS: ATTEND Family Medicine
DX: K85.90 Acute pancreatitis without necrosis or infection, unspecified (principal); Z88.0 Allergy status to penicillin; Z88.5 Allergy status to narcotic agent; Z88.6 Allergy status to analgesic agent; Z91.041 Radiographic dye allergy status
CPT/HCPCS: 78226; A9537

== ENCOUNTER → 2019-05-12 | Outpatient (CLI) | payer MEDICARE, BC ==
--- NOTE | 2019-05-12 14:59 | XR ---
Lumbosacral spine HISTORY: Low back pain 5 views of lumbosacral spine Correlation to prior exam 08/14/2016 There is a spinal curvature. Multilevel spondylosis is present. Lumbar vertebral bodies show preserve d height, there is no evident spondylolysis. Anterolisthesis grade 1 is present at L4-5 as on prior e xam. Loss of disc height is present at intervertebral levels. There is associated vacuum phenomenon. Sclerosis present in the posterior elements of the lumbar spine. Apical scarring vascular calcificati ons are again noted. Bone mineralization is reduced. IMPRESSION: Degenerative disc disease, spondylolisthesis, facet arthropathy. Osteopenia.
== END | disposition home or self-care (01) ==
LOC: RADXRMAIN 11:44
PROVIDERS: ATTEND Family Medicine
DX: M43.16 Spondylolisthesis, lumbar region (principal); M51.37 Other intervertebral disc degeneration, lumbosacral region; M85.88 Other specified disorders of bone density and structure, other site; M46.97 Unspecified inflammatory spondylopathy, lumbosacral region
CPT/HCPCS: 72110

== ENCOUNTER → 2019-08-09 | Outpatient (CLI) | payer MEDICARE, BC ==
[2019-08-09 12:20] LABS: Basophils # (A) 0.1 k/uL (0-0.2); Basophils % (A) 1 %; Eosinophils # (A) 0.1 k/uL (0-0.7); Eosinophils % (A) 1 %; HCT 42.6 % (34.0-46.0); HGB 13.9 gm/dL (11.4-16.0); Lymphocytes # (A) 2.5 k/uL (1.0-4.8); Lymphocytes % (A) 24 %; MCH 33.4 pg (25.0-35.0); MCHC 32.7 g/dL (31.0-37.0); MCV 102.2 fL (80.0-100.0); Macrocytosis Slight; Monocytes # (A) 0.7 k/uL (0-1.0); Monocytes % (A) 6 %; Neutrophils % (A) 67 %; Platelet Count 253 k/uL (150-450); RBC 4.17 m/uL (3.80-5.40); RDW 13.7 % (11.5-15.5); WBC 10.5 k/uL (3.8-10.6)
[2019-08-09 12:34] LABS: Appearance,Urine Clear (Clear); Bilirubin,Urine Negative (Negative); Blood,Urine Negative (Negative); Color,Urine Light Yellow; Glucose,Urine (UA) Negative (Negative); Ketones,Urine Negative (Negative); Leukocyte Esterase,Urine Negative (Negative); Nitrite,Urine Negative (Negative); Protein,Urine Negative (Negative); Specific Gravity,Urine 1.004 (1.001-1.035); Urobilinogen,Urine <2.0 mg/dL (<2.0)
[2019-08-09 19:56] LABS: % Iron Saturation 35.03 (12.00-45.00); African American GFR (CKD) 52.6 (60.0-200.0); Anion Gap 9.2 mmol/L (4.00-12.00); BUN/Creat Ratio 20.91 Ratio (12.00-20.00); Calcium 9.8 mg/dL (8.7-10.3); Carbon Dioxide 26.8 mmol/L (21.6-31.8); Magnesium 1.8 mg/dL (1.5-2.4); Non-African American GFR(CKD) 45.4 (60.0-200.0); Phosphorus 3.5 mg/dL (2.4-5.1); Potassium 4.3 mmol/L (3.5-5.5); Uric Acid 4.7 mg/dL (2.9-7.7)
[2019-08-09 20:04] LABS: Ferritin 104.4 ng/mL (10.0-291.0)
== END | disposition home or self-care (01) ==
LOC: LABWHC1 11:30
PROVIDERS: ATTEND Internal Medicine Nephrology
DX: N18.3 Chronic kidney disease, stage 3 (moderate) (principal); N39.0 Urinary tract infection, site not specified
CPT/HCPCS: 36415; 80048; 81003; 82306; 82728; 83540; 83550; 83735; 83970; 84100; 84550; 85025

== ENCOUNTER → 2019-08-13 | Outpatient (CLI) | payer MEDICARE, BC ==
--- NOTE | 2019-08-13 11:47 | BD ---
EXAMINATION TYPE: Axial Bone Density DATE OF EXAM: 08/13/2019 COMPARISON: Prior DEXA bone scan 2013 CLINICAL HISTORY: Postmenopausal female, disorder of bone Height: 62 Weight: 143.3 FRAX RISK QUESTIONS: Alcohol (3 or more units per day): no Family History (Parent hip fracture): no Glucocorticoids (More than 3mos): no (Ex: prednisone, prednisolone, methylprednisolone, dexamethasone, and hydrocortisone). History of Fracture in Adulthood: no Secondary Osteoporosis: 1. Type 1 Diabetes: no 2. Hyperthyroidism: no 3. Menopause before 45: yes 4. Malnutrition: no 5. Chronic liver disease: no Rheumatoid Arthritis: no Current Tobacco Use: no RISK FACTORS HISTORY OF: Family History of Osteoporosis: no Active: no Diet low in dairy products/other sources of calcium: no Postmenopausal woman: age 31 Lost more than 2 inches in height since high school: yes Poor Health: yes- poor memory MEDICATIONS: Additional History: EXAM MEASUREMENTS: Bone mineral densitometry was performed using the [employer] System. Bone mineral density as measured about the Lumbar spine is: ----- L1-L4(G/cm2): 1.538 T Score Values are as follows: ----- L2: 2.3 ----- L3: 4.3 ----- L4: 3.4 ----- L1-L4: 3.0 Bone mineral density has: increased 8.8 % since study of: 03.25.2014 Bone mineral density about the R hip (g/cm2): 0.903 Bone mineral density about the L hip (g/cm2): 0.815 T Score values are as follows: -----R Neck: -1.0 -----L Neck: -1.6 -----R Total: -0.7 -----L Total: -0.5 Bone mineral density has: decreased -14.4 % since study of: 03.25.2014 IMPRESSION: Osteopenia (T Score between -2.5 and -1) now present femoral neck level left hip. Bone density likely falsely elevated in the low back. There is slightly increased risk of fracture and the patient may be considered for treatment. Re-Screen 2-5 years. NOTE: T-SCORE=SD OF THE YOUNG ADULT MEAN.
== END | disposition home or self-care (01) ==
LOC: RADBDWWP 09:36
PROVIDERS: ATTEND Family Medicine
DX: M85.88 Other specified disorders of bone density and structure, other site (principal); Z78.0 Asymptomatic menopausal state
CPT/HCPCS: 77080

== ENCOUNTER 2022-11-01 12:21 | Emergency (ER) | payer MEDICARE, BC ==
--- NOTE | 2022-11-01 13:13 | ED ---
Altered Mental Status HPI - General Chief Complaint: Altered Mental Status Stated Complaint: medical eval Time Seen by Provider: 11/01/22 12:30 Source: patient, EMS, RN notes reviewed Mode of arrival: EMS Limitations: altered mental status - History of Present Illness Initial Comments: This an 87-year-old female presents emergency from via EMS for evaluation. Patient reportedly was going to extended living facility but was refusing and was brought to emergency department. There is no further information at this time. Patient has no complaints herself patient reportedly has a history of dementia. - Related Data Home Medications Medication Instructions Recorded Confirmed allopurinoL [Zyloprim] 200 mg PO DAILY 06/28/14 11/01/22 Enalapril [Vasotec] 5 mg PO DAILY 01/27/18 11/01/22 Meloxicam 7.5 mg PO BID PRN 01/27/18 11/01/22 Simvastatin 40 mg PO HS 01/27/18 11/01/22 Donepezil HCl [Aricept] 10 mg PO DAILY 11/01/22 11/01/22 Memantine [Namenda] 10 mg PO BID 11/01/22 11/01/22 amLODIPine [Norvasc] 5 mg PO DAILY 11/01/22 11/01/22 Allergies Allergy/AdvReac Type Severity Reaction Status Date / Time codeine Allergy Unknown Verified 11/01/22 12:44 Iodinated Contrast Media Allergy Unknown Verified 11/01/22 12:44 [Iodinated Contrast Media - IV Dye] Penicillins Allergy Unknown Verified 11/01/22 12:44 tramadol HCl [From Ultram] Allergy Unknown Verified 11/01/22 12:44 Review of Systems ROS Statement: Those systems with pertinent positive or pertinent negative responses have been documented in the HPI. ROS Other: All systems not noted in ROS Statement are negative. Past Medical History Past Medical History: Cancer, GERD/Reflux, Hyperlipidemia, Hypertension Additional Past Medical History / Comment(s): ovarian cancer, breast cancer, mild memory loss, carotid stenosis, gout, neuropathy History of Any Multi-Drug Resistant Organisms: None Reported Past Surgical History: Appendectomy, Hysterectomy Additional Past Surgical History / Comment(s): mastectomy left breast, right carotid endartecectomy Past Anesthesia/Blood Transfusion Reactions: No Reported Reaction Past Psychological History: No Psychological Hx Reported Smoking Status: Never smoker Past Alcohol Use History: None Reported Past Drug Use History: None Reported - Past Family History Mother Family Medical History: Cancer Father Family Medical History: Cancer General Exam Limitations: altered mental status General appearance: alert, in no apparent distress Head exam: Present: atraumatic, normocephalic, normal inspection Eye exam: Present: normal appearance, PERRL, EOMI. Absent: scleral icterus, conjunctival injection, periorbital swelling Neck exam: Present: normal inspection. Absent: tenderness, meningismus, lymphadenopathy Respiratory exam: Present: normal lung sounds bilaterally. Absent: respiratory distress, wheezes, rales, rhonchi, stridor Cardiovascular Exam: Present: regular rate, normal rhythm, normal heart sounds. Absent: systolic murmur, diastolic murmur, rubs, gallop, clicks Course Vital Signs 11/01/22 11/01/22 12:36 13:40 Temperature 98 F Pulse Rate 80 78 Respiratory 16 18 Rate Blood Pressure 135/65 149/67 O2 Sat by Pulse 95 97 Oximetry Medical Decision Making - Medical Decision Making Was pt. sent in by a medical professional or institution ([facility], [employer] ANALYST, urgent care, hospital, or prison...) When possible be specific @ -No Did you speak to anyone other than the patient for history (EMS, parent, family, police, friend...)? What history was obtained from this source @ -No Did you review nursing and triage notes (agree or disagree)? Why? @ -I reviewed and agree with nursing and triage notes Were old charts reviewed (outside hosp., previous admission, EMS record, old EKG, old radiological studies, urgent care reports/EKG's, prison records)? Report findings @ -No old charts were reviewed Differential Diagnosis (chest pain, altered mental status, abdominal pain women, abdominal pain men, vaginal bleeding, weakness, fever, dyspnea, syncope, headache, dizziness, GI bleed, back pain, seizure, CVA, palpatations, mental health, musculoskeletal)? @ -Dementia EKG interpreted by me (3pts min.). @ -None X-rays interpreted by me (1pt min.). @ -None done CT interpreted by me (1pt min.). @ -None done U/S interpreted by me (1pt. min.). @ -None done What testing was considered but not performed or refused? (CT, X-rays, U/S, labs)? Why? @ -None What meds were considered but not given or refused? Why? @ -None Did you discuss the management of the patient with other professionals (professionals i.e. , PA, EPIC BEACON ANALYST, lab, RT, psych nurse, social media specialist, slitter processed film, teacher, chief information security officer, lead case manager)? Give summary @ -No Was smoking cessation discussed for >3mins.? @ -No Was critical care preformed (if so, how long)? @ -No Were there social determinants of health that impacted care today? How? (Homelessness, low income, unemployed, alcoholism, drug addiction, transportation, low edu. Level, literacy, decrease access to med. care, shelter, rehab)? @ -No Was there de-escalation of care discussed even if they declined (Discuss DNR or withdrawal of care, Hospice)? DNR status @ -No What co-morbidities impacted this encounter? (DM, HTN, Smoking, COPD, CAD, Cancer, CVA, ARF, Chemo, Hep., AIDS, mental health diagnosis, sleep apnea, morbid obesity)? @ -Dementia Was patient admitted / discharged? Hospital course, mention meds given and route, prescriptions, significant lab abnormalities, going to OR and other pertinent info. @ -Long discussion with nursing management in the ER, staff at facility and family regarding patient. Patient was given Seroquel. Patient will be discharged to the assisted-living home. ] Undiagnosed new problem with uncertain prognosis? @ -No Drug Therapy requiring intensive monitoring for toxicity (Heparin, Nitro, Insulin, Cardizem)? @ -No Were any procedures done? @ -No Diagnosis/symptom? @ -Dementia Acute, or Chronic, or Acute on Chronic? @ -Chronic Uncomplicated (without systemic symptoms) or Complicated (systemic symptoms)? @ -Uncomplicated Side effects of treatment? @ -No Exacerbation, Progression, or Severe Exacerbation? @ -No Poses a threat to life or bodily function? How? (Chest pain, [place], [place], pneumonia, PE, COPD, DKA, ARF, appy, cholecystitis, CVA, Diverticulitis, Homicidal, Suicidal, threat to staff... and all critical care pts) @ -No Disposition Clinical Impression: Dementia Disposition: HOME SELF-CARE Condition: Stable Additional Instructions: Please return to the Emergency Department if symptoms worsen or any other concerns. Is patient prescribed a controlled substance at d/c from ED?: No Referrals: None,Stated [REFERRING] - 1-2 days Time of Disposition: 14:43
[2022-11-01] MEDS ORDERED: QUEtiapine 25 MG TAB PO STA (13:29)
[2022-11-01 13:50] VITALS: RESP 18
[2022-11-01 15:31] VITALS: BP 123/63; PULSE 66; TEMP 97.9
== END 2022-11-01 15:31 | disposition home or self-care (01) ==
LOC: EC 12:21
DX: F03.90 Unspecified dementia, unspecified severity, without behavioral disturbance, psychotic disturbance, mood disturbance, and anxiety (principal); E78.5 Hyperlipidemia, unspecified; I10 Essential (primary) hypertension; Z88.5 Allergy status to narcotic agent; Z91.041 Radiographic dye allergy status; Z88.0 Allergy status to penicillin; Z88.6 Allergy status to analgesic agent; Z79.899 Other long term (current) drug therapy
CPT/HCPCS: 99285